=== PATIENT | female | born 1990 | race Two or more races ===

== ENCOUNTER 2022-09-08 21:35 | Emergency (ER) | payer OTHER ==
[~2022-09-08] VITALS: Ht 162.6 cm; Wt 63.5 kg
[~2022-09-08 21:35] MED LIST: [UNRECOGNIZED DRUG - OTHER] TP
== END 2022-09-09 00:50 | disposition home or self-care (01) ==
LOC: ER 21:35
DX: K52.9 Noninfective gastroenteritis and colitis, unspecified (principal); J03.90 Acute tonsillitis, unspecified